=== PATIENT | female | born 1970 | race Caucasian/White ===

== ENCOUNTER 2023-03-23 19:57 | Emergency (ER) | payer BC ==
[~2023-03-23] VITALS: Ht 162.6 cm; Wt 78.9 kg
[2023-03-23 20:02] VITALS: BP_SYST 120
[2023-03-23 20:52] LABS: BASOPHILS % (AUTO) 0.4 % (0.0-2.0); EOSINOPHILS # (AUTO) 0.3 K/uL (0.0-0.4); EOSINOPHILS % (AUTO) 3.2 % (0.0-4.0); HEMATOCRIT 39.1 % (36-48); HEMOGLOBIN 13.4 g/dL (12.0-16.0); LYMPHOCYTES # (AUTO) 2.7 K/uL (1.0-5.5); LYMPHOCYTES % (AUTO) 29.7 % (20.5-51.5); MEAN CORPUSCULAR HEMOGLOBIN 30 pg (27-31); MEAN CORPUSCULAR HGB CONC 34 % (32-36); MEAN CORPUSCULAR VOLUME 87 fL (79.0-98.0); MONOCYTES # (AUTO) 0.6 K/uL (0.0-1.0); MONOCYTES % (AUTO) 6.4 % (1.7-9.3); NEUTROPHILS # (AUTO) 5.4 K/uL (1.8-7.7); NEUTROPHILS % (AUTO) 60.3 % (40.0-70.0); PLATELET COUNT (AUTO) 235 K/uL (130-430); RED CELL DISTRIBUTION WIDTH 14.1 % (9.0-15.0)
[2023-03-23 20:55] LABS: CALCIUM 8.6 mg/dL (8.4-11.0); CREATININE 0.78 mg/dL (0.55-1.30); TOTAL BILIRUBIN 0.2 mg/dL (0.0-1.0)
[2023-03-23] MEDS ORDERED: CLIN-22 PO (21:28)
[2023-03-23] MEDS ORDERED: ACET-2634 PO (21:28)
[2023-03-23] MEDS ORDERED: CLINDAMYCIN HCL 150 MG CAPSULE PO ONE (21:30)
[2023-03-23] MEDS ORDERED: ACETAMINOPHEN 500 MG TABLET PO ONE (21:30)
[2023-03-23 21:32] LABS: ALBUMIN 3.8 g/dL (3.4-4.8)
[2023-03-23 22:02] VITALS: BP_SYST 120
== END 2023-03-23 22:02 | disposition home or self-care (01) ==
LOC: SED 19:57
DX: L03.116 Cellulitis of left lower limb (principal); M79.662 Pain in left lower leg; Z88.6 Allergy status to analgesic agent; Z79.899 Other long term (current) drug therapy
CPT/HCPCS: 36415; 80053; 83605; 85025; 93971; 99284